=== PATIENT | male | born 1970 | race African-American/Black ===

== ENCOUNTER 2017-02-13 22:12 | Emergency (ER) | payer SELFPAY ==
[~2017-02-13] VITALS: Ht 177.8 cm; Wt 81.0 kg
[2017-02-13] MEDS ORDERED: SODIUM CHLORIDE 0.9% 1,000 ML IV ONE (22:37)
[2017-02-13] MEDS ORDERED: ONDANSETRON HCL 4MG/2ML VIAL IV ONE (22:45)
[2017-02-13] MEDS ORDERED: MORPHINE SULFATE 4 MG/ML CPJ (NOT FOR IM USE) IV ONE (22:45)
[2017-02-13 23:05] LABS: HEMATOCRIT 58.4 % (42.0-52.0); HEMOGLOBIN 20.7 g/dL (14.0-18.0); MEAN CORPUSCULAR HEMOGLOBIN 32.6 pg (28.0-32.0); MEAN CORPUSCULAR VOLUME 91.8 fL (80.0-94.0); PLATELET 238 x1000/uL (130-400); RED BLOOD CELL COUNT 6.36 mill/uL (4.7-6.1); RED CELL DISTRIBUTION WIDTH 12.7 % (11.6-14.6)
[2017-02-13 23:30] LABS: CARBON DIOXIDE 23 mEq/L (21-32); CHLORIDE 95 mEq/L (98-107)
[2017-02-14] MEDS ORDERED: MORPHINE SULFATE 4 MG/ML CPJ (NOT FOR IM USE) IV ONE
[2017-02-14] MEDS ORDERED: MORPHINE SULFATE 10 MG/ML CPJ IV ONE (01:45)
[2017-02-14] MEDS ORDERED: LABETALOL HCL 20MG/4ML CARPUJECT IV ONE ×2 (03:30→04:30)
[2017-02-14] MEDS ORDERED: IOHEXOL-300 100 ML BOTTLE ONE (03:38)
[2017-02-14] MEDS ORDERED: LABETALOL 5MG/ML SYR 20 MG/4 ML SYRINGE IV SCH ×2 (03:45→04:38)
[2017-02-14] MEDS ORDERED: LORAZEPAM 2MG/ML CPJ IV ONE (04:30)
[2017-02-14 07:55] VITALS: BP 193/113
== END 2017-02-14 08:24 | disposition left against medical advice (07) ==
LOC: ER 22:12 → EDBEDREQ 02-14 03:12 → ENRESERV 02-14 03:19 → CANRESERV 02-14 03:19 → EDBEDREQTM 02-14 03:39 → EDBEDREQSVC 02-14 03:39 → ENRESERV 02-14 07:01 → CANRESERV 02-14 07:01 → CANBEDREQ 02-14 08:24 → ER 02-14 08:24
DX: K85.90 Acute pancreatitis without necrosis or infection, unspecified (principal); I10 Essential (primary) hypertension; D72.829 Elevated white blood cell count, unspecified; E11.65 Type 2 diabetes mellitus with hyperglycemia
CPT/HCPCS: 36415; 74177; 80053; 80076; 83690; 84484; 85027; 93005; 96361; 96374; 96375; 96376; 99285; J2060; J2270; J2405; J3490; J7030; Q9967; Z7610

== ENCOUNTER 2017-02-27 08:25 | Emergency (ER) | payer MEDICAID, SELFPAY ==
[~2017-02-27] VITALS: Ht 172.7 cm; Wt 70.0 kg
[2017-02-27 09:19] LABS: EOSINOPHILS % 0.4 % (0.0-5.0); HEMATOCRIT. 48.8 % (42.0-52.0); HEMOGLOBIN. 17.4 g/dL (14.0-18.0); LYMPHOCYTES % 15.8 % (20.0-50.0); MEAN CORPUSCULAR HEMOGLOBIN 32.8 pg (28.0-32.0); MEAN CORPUSCULAR VOLUME 92.1 fL (80.0-94.0); MEAN PLATELET VOLUME 7.9 fl (7.4-10.4); MONOCYTES % 5.1 % (2.0-8.0); NEUTROPHILS % 77.7 % (40.0-76.0); PARTIAL THROMBOPLASTIN TIME 26.3 sec (23.4-31.0); PLATELET 562 x1000/uL (130-400); PROTHROMBIN TIME 10.6 sec (9.4-11.6); RED CELL DISTRIBUTION WIDTH 12.3 % (11.6-14.6)
[2017-02-27 09:28] LABS: CARBON DIOXIDE 26 mEq/L (21-32); CHLORIDE 100 mEq/L (98-107); TROPONIN I < 0.02 ng/mL (0.00-0.04)
[2017-02-27 10:38] LABS: CREATINE KINASE MB FRACTION 1.2 ng/mL (0.5-3.6)
[2017-02-27] MEDS ORDERED: ONDANSETRON HCL 4MG/2ML VIAL IV ONE (11:00)
[2017-02-27] MEDS ORDERED: MORPHINE SULFATE 4 MG/ML CPJ (NOT FOR IM USE) IV ONE ×2 (11:00→13:00)
[2017-02-27] MEDS ORDERED: SODIUM CHLORIDE 0.9% 1,000 ML IV ONE (11:30)
[2017-02-27 11:44] LABS: *AMPHETAMINES SCREEN URINE NEGATIVE (NEGATIVE); *BARBITURATES SCREEN URINE NEGATIVE (NEGATIVE); *BENZODIAZEPINES SCREEN URINE NEGATIVE (NEGATIVE); *COCAINE SCREEN URINE NEGATIVE (NEGATIVE); CANNABINOID URINE SCREEN PRESUMTIVE POSITIVE (NEGATIVE); METHADONE URINE SCREEN NEGATIVE (NEGATIVE); OPIATES URINE SCREEN NEGATIVE (NEGATIVE); PHENCYCLIDINE URINE SCREEN NEGATIVE (NEGATIVE)
[2017-02-27 13:32] VITALS: BP 161/93
== END 2017-02-27 13:48 | disposition home or self-care (01) ==
LOC: ER 08:42 → CANBEDREQ 14:23
DX: R10.12 Left upper quadrant pain (principal); R11.10 Vomiting, unspecified; H53.8 Other visual disturbances; R19.5 Other fecal abnormalities; E11.9 Type 2 diabetes mellitus without complications; I10 Essential (primary) hypertension; F17.200 Nicotine dependence, unspecified, uncomplicated
CPT/HCPCS: 36415; 74022; 80053; 80305; 82550; 82553; 83690; 83735; 83880; 84484; 85025; 85610; 85730; 93005; 96361; 96374; 96375; 96376; 99285; G0482; J2270; J2405; J7030

== ENCOUNTER 2019-10-31 08:12 | Inpatient (IN) | payer MEDICAID ==
[~2019-10-31] VITALS: Ht 172.7 cm; Wt 72.6 kg
[2019-10-31] MEDS ORDERED: KETOROLAC 30MG/ML VIAL IV STA (08:46)
[2019-10-31] MEDS ORDERED: SODIUM CHLORIDE 0.9% 1,000 ML IV ONE ×2 (08:46→09:30)
[2019-10-31] MEDS ORDERED: ONDANSETRON HCL 4MG/2ML INJ IV STA (08:46)
[2019-10-31 09:01] LABS: BASOPHILS % 1.3 % (0.0-2.0); EOSINOPHILS % 0.6 % (0.0-5.0); HEMOGLOBIN. 15.9 g/dL (14.0-18.0); LYMPHOCYTES % 25.2 % (20.0-50.0); MEAN CORPUSCULAR HEMOGLOBIN 31.7 pg (28.0-32.0); MEAN CORPUSCULAR VOLUME 89.8 fL (80.0-94.0); MEAN PLATELET VOLUME 8.1 fl (7.4-10.4); MONOCYTES % 5.2 % (2.0-8.0); NEUTROPHILS % 67.7 % (40.0-76.0); PLATELET 509 x1000/uL (130-400); RED BLOOD CELL COUNT 5.01 mill/uL (4.7-6.1); RED CELL DISTRIBUTION WIDTH 12.4 % (11.6-14.6)
[2019-10-31 09:09] LABS: CHLORIDE 93 mEq/L (98-107)
[2019-10-31 09:10] LABS: INR 0.9; PROTHROMBIN TIME 9.9 sec (9.6-11.0)
[2019-10-31 09:22] LABS: CLARITY URINE CLEAR (CLEAR); COLOR URINE YELLOW (YELLOW); KETONES URINE 2+ (NEGATIVE); LEUKOCYTE ESTERASE URINE NEGATIVE (NEGATIVE); NITRITE URINE NEGATIVE (NEGATIVE); OCCULT BLOOD URINE NEGATIVE (NEGATIVE); PH URINE 5.5 (4.5-8.0); PROTEIN URINE NEGATIVE (NEGATIVE); UROBILINOGEN URINE 0.2 E.U./dL (0.2-1.0)
[2019-10-31] MEDS ORDERED: MORPHINE SULFATE 4 MG/ML CPJ (NOT FOR IM USE) IV ONE (10:45)
[2019-10-31 11:13] LABS: BG BASE EXCESS -1.8 mmol/L (-2.0-2.0); BG CARBOXYHEMOGLOBIN 6.2 % (0.5-1.5); BG DEOXYHEMOGLOBIN 3.7 % (0.0-5.0); BG FRACTION INSPIRED OXYGEN 21; BG HCO3 ACT 22.5 mmol/L (22.0-26.0); BG METHEMOGLOBIN 0.2 % (0.0-1.5); BG OXYHEMOGLOBIN 89.9 % (94.0-97.0); BG PH 7.402 (7.350-7.450); BG PO2 84.1 mmHg (75.0-100.0); BG SAMPLE SITE LEFT RADIAL; BG TOTAL HEMOGLOBIN 14.2 g/dL (12.0-18.0); BG VENT MODE ROOM AIR
[2019-10-31] MEDS ORDERED: DEXTROSE 50% WATER 50ML SYRINGE IV PRN (12:30)
[2019-10-31] MEDS ORDERED: HYDROMORPHONE HCL/PF 2MG/ML CPJ IV NR (12:30)
[2019-10-31] MEDS ORDERED: HYDROCODONE/ACETAMINOPHEN 5/325MG TABLET PO PRN ×2 (12:30→16:45)
[2019-10-31] MEDS ORDERED: NALOXONE HCL 0.4 MG/ML 1ML VIAL IV NR (12:30)
[2019-10-31] MEDS ORDERED: NALOXONE HCL 0.4 MG/ML 1ML VIAL IV PRN (12:45)
[2019-10-31] MEDS: BLOOD SUGAR DIAGNOSTIC STRIP TEST SCH ×3 (12:58→20:10)
[2019-10-31] MEDS: SODIUM CHLORIDE 0.9% 1,000 ML IV SCH (12:58)
[2019-10-31] MEDS ORDERED: ACETAMINOPHEN 325MG TABLET PO PRN ×2 (16:45)
[2019-10-31] MEDS ORDERED: GUAIFENESIN 200MG/10ML SUGAR FREE UDC PO PRN (16:45)
[2019-10-31] MEDS ORDERED: ONDANSETRON HCL 4MG/2ML INJ IV PRN (16:45)
[2019-10-31] MEDS ORDERED: IPRATROPIUM/ALBUTEROL 0.5-3(2.5)MG/3ML NEB HHN PRN (16:45)
[2019-10-31] MEDS ORDERED: CLONIDINE 0.1MG TABLET PO PRN (16:45)
[2019-10-31] MEDS ORDERED: DOCUSATE SODIUM 100MG CAPSULE PO PRN (16:45)
[2019-10-31] MEDS ORDERED: LORAZEPAM 0.5MG TABLET PO PRN (16:45)
[2019-10-31 17:39] LABS: CHLORIDE 103 mEq/L (98-107)
[2019-10-31] MEDS: INSULIN LISPRO 100 UNITS/ML SUBCUT SCH (20:49)
[2019-10-31] MEDS: HYDROMORPHONE HCL/PF 2MG/ML CPJ IV PRN (23:27)
[2019-11-01] VITALS (7 sets, daily range): BP systolic 129–156; BP diastolic 64–85
[2019-11-01 00:46] LABS: *AMPHETAMINES SCREEN URINE NEGATIVE (NEGATIVE); *BARBITURATES SCREEN URINE NEGATIVE (NEGATIVE); *BENZODIAZEPINES SCREEN URINE NEGATIVE (NEGATIVE); CANNABINOID URINE SCREEN PRESUMTIVE POSITIVE (NEGATIVE); OPIATES URINE SCREEN PRESUMTIVE POSITIVE (NEGATIVE); PHENCYCLIDINE URINE SCREEN NEGATIVE (NEGATIVE)
[2019-11-01 00:47] LABS: *COCAINE SCREEN URINE PRESUMTIVE POSITIVE (NEGATIVE); METHADONE URINE SCREEN NEGATIVE (NEGATIVE)
[2019-11-01] MEDS ORDERED: MULT-1116 PO (01:41)
[2019-11-01] MEDS ORDERED: HYDR-3280 MT (01:41)
[2019-11-01] MEDS ORDERED: ASPI-1497 MT (01:41)
[2019-11-01] MEDS: SODIUM CHLORIDE 0.9% 1,000 ML IV SCH ×2 (01:49→15:10)
[2019-11-01] MEDS: HYDROMORPHONE HCL/PF 2MG/ML CPJ IV PRN ×3 (04:35→13:59)
[2019-11-01 07:03] LABS: HEMOGLOBIN. 13.8 g/dL (14.0-18.0); LYMPHOCYTES % 30.3 % (20.0-50.0); MEAN CORPUSCULAR HEMOGLOBIN 31.4 pg (28.0-32.0); MEAN CORPUSCULAR VOLUME 90.9 fL (80.0-94.0); MEAN PLATELET VOLUME 7.9 fl (7.4-10.4); MONOCYTES % 5.7 % (2.0-8.0); PLATELET 413 x1000/uL (130-400); RED CELL DISTRIBUTION WIDTH 12.4 % (11.6-14.6)
[2019-11-01 07:06] LABS: CHLORIDE 104 mEq/L (98-107)
[2019-11-01] MEDS: BLOOD SUGAR DIAGNOSTIC STRIP TEST SCH ×3 (07:13→17:47)
[2019-11-01] MEDS: INSULIN LISPRO 100 UNITS/ML SUBCUT SCH ×3 (08:29→18:09)
[2019-11-01] MEDS ORDERED: INSU100I28 SQ (14:22)
[2019-11-01] MEDS ORDERED: METF-414 MT (14:22)
[2019-11-01] MEDS ORDERED: OMEPRAZOLE 20MG CAPSULE EXTENDED RELEASE PO SCH (21:00)
== END 2019-11-01 17:55 | disposition home or self-care (01) | DRG 241 ==
LOC: ER 08:17 → 6EST 11:10 → EDBEDREQSVC 11:19 → EDBEDREQTM 11:24 → EDBEDREQSVC 16:39 → ENRESERV 20:49
PROVIDERS: ADMIT Internal Medicine; ATTEND Internal Medicine
DX: K29.70 Gastritis, unspecified, without bleeding (principal); E11.65 Type 2 diabetes mellitus with hyperglycemia; E87.1 Hypo-osmolality and hyponatremia; F10.21 Alcohol dependence, in remission; I10 Essential (primary) hypertension; K83.8 Other specified diseases of biliary tract; K86.1 Other chronic pancreatitis; Z79.4 Long term (current) use of insulin; Z79.82 Long term (current) use of aspirin; Z79.899 Other long term (current) drug therapy; R81 Glycosuria; D50.9 Iron deficiency anemia, unspecified; R82.4 Acetonuria; F19.10 Other psychoactive substance abuse, uncomplicated; D18.03 Hemangioma of intra-abdominal structures
CPT/HCPCS: 36415; 36600; 74181; 76705; 80048; 80053; 80305; 81003; 82010; 82375; 82805; 82962; 83036; 84484; 85025; 93005; 99285; J1170; J1815; J1885; J2270; J2405; J7030